=== PATIENT | female | born 1985 | race Two or more races ===

== ENCOUNTER 2021-08-10 22:14 | Emergency (ER) | payer MEDICAID, OTHER ==
[~2021-08-10] VITALS: Ht 160 cm; Wt 95.7 kg
[2021-08-10 22:14] VITALS: BP 140/93
== END 2021-08-11 00:33 | disposition left against medical advice (07) ==
LOC: ER 22:14
DX: R68.84 Jaw pain (principal); Z53.21 Procedure and treatment not carried out due to patient leaving prior to being seen by health care provider